=== PATIENT | male | born 1960 | race African-American/Black ===

== ENCOUNTER 2021-10-01 21:29 | Emergency (ER) | payer BC, OTHER ==
--- OUTSIDE RECORDS SUMMARY | 2021-10-01 21:33 | XMS REPORT | Continuity of Care Document ---
:1960 Author Organization [facility] t Address [address] [place] [address] Care Team Providers Name Role Phone PCP, DOES NOT HAVE A Primary Care Physician Unavailable MARIE Attending Clinician Unavailable Carly Attending Clinician Unavailable COLEEN Attending Clinician Unavailable Constantine Romo DO Attending Clinician [place] CABALLERO, A Attending Clinician Reginald GUTHRIE Attending Clinician Unavailable MARIE Admitting Clinician Unavailable Carly Admitting Clinician Unavailable [place] CABALLERO, A Admitting Clinician Reginald GUTHRIE Admitting Clinician Unavailable Payers Payer Name Policy Type Policy Number Effective Date Expiration Date S leesa [address] QUEZADA [id number] FROM [place] [employer] PL[employer] ([facility]) Problems Condition Condition Condition Status Onset Resolution Last Treating Co mments Source Name Details Category Date Date Treatment Clinician Date Hyperglyce Hyperglyce Disease Active 2020-0 U nivers bear due to bear due to 2-10 it y of type 2 type 2 00:00: [place] diabetes diabetes 00 Medica l mellitus mellitus Branch Gastroesop Gastroesop Diagnosis Active [facility] - reflux reflux Memoria disease, disease, l esophagiti esophagiti Ou tpati s presence s presence en t not not Clinics specified specified Diabetes Diabetes Problem Active [facility] mellitus mellitus [facility] - type 2, type 2, Memoria uncontroll uncontroll l ed, ed, Outpati without without ent complicati complicati Cl inics ons ons Pain of Pain of Problem Active [facility] upper upper [facility] - abdomen abdomen Memoria l Outpati ent Clinics Elevated Elevated Diagnosis Active [facility] PSA, less PSA, less Luke s - than 10 than 10 Memoria ng/ml ng/ml l Outpati ent Clinics Stress Stress Problem Active [facility] Erectile Erectile Diagnosis Active [facility] dysfunctio dysfunctio Sindy kes - n, n, Memoria unspecifie unspecifie l d erectile d erectile Ou tpati dysfunctio dysfunctio en t n type n type Clinics Depression Depression Diagnosis Active [facility] (emotion[facility] (emotion[facility] - Memoria l Outpati ent Clinics History of History of Problem Active [facility] prostate prostate [facility] - cancer cancer [facility] l Outpati ent Clinics Hyperlipid Hyperlipid Diagnosis Active [facility] HTN HTN Diagnosis Active [facility] (hypertens (hypertens Sindy kes - ion) ion) Memoria l Outpati ent Clinics Uncontroll Uncontroll Diagnosis Active [facility] ed type 2 ed type 2 Luke s - diabetes diabetes Memori a mellitus mellitus l with with Outpati hypoglycem hypoglycem en t ia, ia, Clinics unspecifie unspecifie d d hypoglycem hypoglycem ia coma ia coma status status Allergies, Adverse Reactions, Alerts Allergy Allergy Status Severity Reaction(s) Onset Inactive Treating Comm ents Source Name Type Date Date Clinician NO KNOWN Drug Active Univers ALLERGIE Class ity of S [facility] Social History Social Habit Start Date Stop Date Quantity Comments Source Sex Assigned At [facility] Medical Branch Alcohol intake 2019-07-24 2019-07-24 [facility] 00:00:00 00:00:00 [facility] Branch Smoking Status Start Date Stop Date Source Former smoker 2019-07-24 00:00:00 2019-07-24 00:00:00 [facility] Branch Medications Ordered Filled Start Stop Current Ordering Indication Dosage Frequency Signature Comments Components Source Medication Medication Date Date Medication? Clinician (SIG) Name Name atorvastati Yes 20mg 20 mg, Univ ers n (LIPITOR) 2-12 Oral, QHS, it y of tablet 20 03:00: [place] mg 00 on Wed [facility] 07/25/19 at Branch 2100, Until Discontinu ed, Routine esomeprazol 2019-0 Yes 20mg Take 20 mg Univers e (NEXIUM) 11 by mouth ity o f 20 mg 21:19: daily [place] capsule 13 before a Medical meal. Branch gabapentin 2020- No 600mg Take 600 U nivers 600 mg 07-25 mg by ity of tablet 18:21: 00:00 mouth at [place] 06 :00 bedtime. Medical Branch insulin NPH 2019-0 Yes .15U/kg 7 Units Univers (HUMULIN N) 07-25d (rounded ity of injection 7 15:00: from [place] Units 00 6.8025 Medical Units = Branch 0.15 Units/kg/d ay ?90.7 kg), Subcutaneo us, QAM+HS, First dose on Wed07/25/19 at 0900, Until Discontinu ed, Routine Sliding 2019-0 Yes [facility] ers Scale 2-11 us, TID ity of Insulin - 03:00: MEALS+HS, Vadim as Aspart 00 First dose Medical (NOVOLOG) + on Wed [place] [facility] 07/24/19 at Testing 2100, Until Discontinu ed, Routine gabapentin 2019-0 Yes 600mg 600 mg, Uni vers (NEURONTIN) -11 Oral, QHS, it y of tablet 600 03:00: [place] mg 00 on [facility] 07/24/19 at Branch 2100, Until Discontinu ed, Routine insulin NPH 2020- No .1U/kg/ 5 Units Univers (HUMULIN N) 07-25 d (rounded ity of injection 5 03:00: 13:22 from 4.535 [place] Units 00 :58 Units = Medical 0.1 Branch Units/kg/d ay ?90.7 kg), Subcutaneo us, QAM+HS, First dose on [facility] 07/24/19 at 2100, Until Discontinu ed, Routine magnesium 2019-0 2020- No 800mg 800 mg, Uni vers oxide 07-25 Oral, ity of (MAG-OX 02:15: 03:23 ONCE, 1 [place] 400) tablet 00 :00 dose, [facility] Med ical 800 mg 07/24/19 at Branch 2015, Routine enoxaparin 2020-0 Yes 40mg 40 mg, Unive rs (LOVENOX) 2-11 Subcutaneo ity of injection 00:30: us, Q24H, [place] as 40 mg 00 First dose Medical on [facility] Branch 07/24/19 at 1830, Until Discontinu ed, Routine amLODIPine 2020-0 Yes 5mg 5 mg, Univer s (NORVASC) 2-11 Oral, QPM, ity of tablet 5 mg 00:15: First dose [place] 00 on [facility] Medical 07/24/19 at Branch 1815, Until Discontinu ed, Routine pantoprazol 2020-0 Yes 40mg 40 mg, Univ ers e 2-11 Oral, QPM, ity of (PROTONIX) 00:15: First dose [place] EC tablet 00 on [facility] 40 mg 07/24/19 at Branch 1815, Until Discontinu ed, Routine amLODIPine 2020-0 Yes [id number] 5mg Take 1 U nivers 5 mg tablet 2-11 tablet by ity of 00:00: mouth [place] 00 daily. Medical Branch atorvastati 2020-0 Yes [id number] 40mg Take 1 Univers n 40 mg 2-11 tablet by ity of tablet 00:00: mouth at [place] 00 bedtime. Medical Branch metFORMIN 2020-0 Yes [id number] 500mg Take 1 U nivers 500 mg 2-11 tablet by ity of tablet 00:00: mouth 2 [place] 00 (two) Medical times Branch daily with meals. After one week, take two tablets twice daily with meals. gabapentin 2020-0 Yes [id number] 300mg Take 1 Univers ER 300 mg 2-11 tablet by ity o f tablet, 00:00: mouth 3 [place] extended 00 (three) Medical release 24 times Branch hr daily. glipiZIDE 2020-0 Yes [id number] 10mg Take 1 Un dhara 10 mg 2-11 tablet by ity of tablet 00:00: mouth 2 [place] 00 (two) Medical times Branch daily before breakfast and dinner. magnesium 2020-0 2020- No 296mL 296 mL, Uni vers citrate -03 15-10 Oral, ity of solution 23:30: 22:43 ONCE, 1 [place] 296 mL 00 :00 dose, [facility] Medical 07/24/19 at Branch 1730, SILVERIO acetaminoph 2020-0 Yes 650mg 650 mg, Un dhara en 2-10 Oral, ity of (TYLENOL) 23:26: Q6HPRN, [place] tablet 650 22 Starting Medic al mg Mon [place] 07/24/19 at 1726, Until Discontinu ed, Routine, Pain (scale 1-3) NaCl 0.9% 2020-0 2020- No 1000mL at 999 Uni vers (NS) bolus 2-10 02-10 mL/hr, ity of infusion 21:30: 21:49 1,000 mL, [place] as 1,000 mL 00 :00 IV Medical Infusion, Branch ONCE, 1 dose, 07/24/19 at 1530, STAT metFORMIN 2019-0 2020- No 1000mg 1,000 mg, Univers (GLUCOPHAGE 210 Oral, ity of ) tablet 19:45: 18:49 ONCE, 1 [place] 1,000 mg 00 :00 dose, Mon Medica l 07/24/19 at Branch 1345, SILVERIO insulin 2019-0 2020- No 3U 3 Units, Unive rs regular 2- 02-10 IV Push, ity of human 19:45: 18:50 ONCE, 1 [place] (HUMULIN R) 00 :00 dose, [facility] Med ical injection 3 07/24/19 at Br anch Units 1345, Routine NaCl 0.9% 2019-0 2020- No 1000mL at 999 Uni vers (NS) bolus 2-10 02-10 mL/hr, ity of infusion 19:45: 20:56 1,000 mL, Vadim as 1,000 mL 00 :00 IV Medical Infusion, [place] ONCE, 1 dose, [facility] 07/24/19 at 1345, STAT iohexol 2019-0 2020- No 120mL 120 mL, Unive rs (OMNIPAQUE 07-2410 Intravenou it y of 350 19:30: 19:30 s, ONCE, 1 [place] BULK-150 00 :00 dose, Mon Medica l mL) 07/24/19 at Branch injection 1330, 120 mL Routine Sucralfate Sucralfate 2017-06 2019- No [place] [address] [facility] 07-26 on an [facility] - 00:00: 00:00 empty Memoria 00 :00 stomach l Outpati ent Clinics Metformin Metformin 2018-0 Yes [place] [address] [facility] HCl HCl 6-04 with a [facility] - 00:00: meal Memoria 00 l Outpati ent Clinics Lisinopril Lisinopril 2017-0 Yes [place] [address] [facility] 4-12 [facility] - 00:00: Memoria 00 l Outpati ent Clinics Neurontin Neurontin Yes [place] [address] [facility]pat[facility] Clinics Simvastatin Simvastatin Yes [place] [address] [facility] in the [facility] - evening Memoria l Outpati ent Clinics Glimepiride Glimepiride Yes [place] [address] [facility] with [facility] - breakfast Memoria or the l first main Outpati meal of ent the day Clinics Aspir-81 Aspir-81 Yes Na [place] [address] [facility] Lisinopril Lisinopril Yes [place] [address] [facility] Cialis Cialis 2019- No [place] [address] 04-17 [facility] - 00:00 Memoria :[facility] Vital Signs Vital Name Observation Time Observation Value Comments Source Systolic blood 2019-07-25 17:49:00 126 mm[Hg] [facility] Districter sity pressure [facility] Diastolic blood 2019-07-25 17:49:00 92 mm[Hg] [facility] rate 2019-07-25 17:49:00 75 /min [facility] Body temperature 2019-07-25 17:49:00 36.33 Marisa [facility] Respiratory rate 2019-07-25 17:49:00 16 /min [facility] Oxygen saturation in 2019-07-25 17:49:00 99 /min [facility] Arterial blood by [facility] Pulse oximetry Branch Body height 2019-07-25 02:00:00 190.5 cm [facility] Body weight 2019-07-25 02:00:00 89.994 kg [facility] BMI 2019-07-25 02:00:00 24.80 kg/m2 [facility] Procedures Procedure Date / Time Performing Clinician Source Performed POCT GLUCOSE 2019-07-25 18:36:00 José Luis Guthrie [facility] (AUTOMATED) Medical [place] POCT GLUCOSE 2019-07-25 14:26:00 José Luis Guthrie [facility] (AUTOMATED) Medical Branch MAGNESIUM 2019-07-25 10:39:00 Damien Ornelas [facility] VITAMIN B12, LEVEL 2019-07-25 10:39:00 José Luis Guthrie [facility] BASIC METABOLIC PANEL 2019-07-25 10:39:00 Damien Ornelas [facility] (NA, K, CL, CO2, Medical Branch GLUCOSE, BUN, CREATININE, CA) LIPID PANEL 2019-07-25 10:39:00 Damien Ornelas [facility] ([id number])(TOTAL Medical Branch CHOLESTEROL, TRIGLYCERIDES, HDL) POCT GLUCOSE 2019-07-25 03:07:00 José Luis Guthrie [facility] (AUTOMATED) Medical Branch PHOSPHORUS 2019-07-24 23:05:00 Aurelio Cooney [facility] MAGNESIUM 2019-07-24 23:05:00 Aurelio Cooney [facility] FREE T4 2019-07-24 23:05:00 Damien Ornelas [facility] THYROID STIMULATING 2019-07-24 23:05:00 [facility] BASIC METABOLIC PANEL 2019-07-24 23:05:00 Damien Ornelas [facility] (NA, K, CL, CO2, Medical Branch GLUCOSE, BUN, CREATININE, CA) POCT GLUCOSE 2019-07-24 21:50:00 Constantine Romo [facility] (AUTOMATED) [facility] ACUTE CARE VENOUS BLOOD 2019-07-24 21:49:00 Gustavo Welch iversesteban [facility] GAS [facility] MICROALBUMIN URINE 2019-07-24 21:25:00 Damien Ornelas [facility] URINALYSIS 2019-07-24 21:25:00 Constantine Romo [facility] POCT GLUCOSE 2019-07-24 20:07:00 Constantine Romo [facility] (AUTOMATED) [facility] LACTIC ACID WHOLE BLOOD 2019-07-24 19:50:00 Gustavo Welch [facility] ACUTE CARE VENOUS BLOOD 2019-07-24 19:20:00 Constantine Romo, [facility] GAS [facility] CT ABDOMEN PELVIS W 2019-07-24 19:19:48 Constantine Romo, [facility] CONTRAST [facility] PHOSPHORUS 2019-07-24 18:49:00 Constantine Romo, [facility] BETA HYDROXY-BUTYRATE 2019-07-24 18:49:00 Constantine Romo, [facility] TROPONIN I 2019-07-24 18:49:00 Constantine Romo, [facility] LIPASE 2019-07-24 17:49:00 Anyi Shah [facility] OSMOLALITY SERUM 2019-07-24 17:49:00 Constantine Romo, [facility] COMP. METABOLIC PANEL 2019-07-24 17:49:[address] [facility] ([id number]) [facility] CBC WITH DIFFERENTIAL 2019-07-24 17:49:00 Anyi Shah Un [facility] GLYCOSYLATED HEMOGLOBIN 2019-07-24 17:49:00 Damien Ornelas [facility] (A1C) [facility] Encounters Start End Encounter Admission Attending Care Care Encounter Source Date/Time Date/Time Type Type Clinicians Facility Department ID 2021-06-17 2021-06-17 Outpatient FERGUSON_JO [facility] [id number] [place] 11:50:00 11:50:00 [facility] 2021-06-09 2021-06-09 Outpatient FERGUSON_JO FLHOP [facility] [address] [place] 08:54:00 08:54:[place] [id number] [facility] 2021-04-28 2021-04-28 Outpatient FERGUSON_JO MEHOP [facility] [id number] [place] 02:36:00 02:36[place] [id number] [facility] 2021-04-24 2021-04-24 Outpatient FERGUSON_JO [facility] [id number] [place] 02:43:00 02:43:00 [place] [id number] da [facility] 2021-02-18 2021-02-18 Outpatient Carly [facility]G [facility] [id number] [place] 11:19:00 11:19:00 [id number] Medical Group 2019-12-14 2019-12-14 Emergency COLEEN, [facility] [id number] [place] 00:00:00 00:00:[address] ARIELLE [address] 2019-07-24 2019-07-25 Emergency Constantine SanzpaigeNikita [id number] Univers 10:20:15 15:19:00 José Luis Guthrie [place] [id number] ity [facility] [id number] Vadim as [id number] [address] 2019-07-24 2019-07-25 Outpatient X [facility] [id number] Univers 10:20:15 15:19:00 [facility] 2018-06-30 2018-06-30 [facility] [id number] 11:30:00 11:30:00 [facility] ent [facility] 2018-05-25 2018-05-25 [facility] [id number] 13:00:00 13:00:00 [facility] Results Test Description Test Time Test Comments Results Result Comments Source MICROALBUMIN URINE 2019-07-25 21:15:00 Test Item Value Reference Range Interpretation Comme nts CREAT U (test code = 37.7 mg/dL 8311004103) MICROALB U (test code 2 ug/mL 0-45 = 98229-8) MICROAL/CR (test code See_Comment [Auto mated message] = 9318-7) The system [facility] [facility] generated this result transmitted ref erence range: 0 - 30 m g/g of creatinine. The reference range was not used to int erpret this result as normal/abnormal . JOSÉ (test code = JOSÉ) Normal: <30 mg/g creatinineMicroalbuminuria: 30 - 299 mg/g creatinineClinical albuminuria: > 300 mg/g creatinine [facility] GLUCOSE (AUTOMATED)2019-07-25 18:57:00 Test Item Value Reference Range Interpretation Comments POCT GLU (test code = 4432994672) 262 mg/dL 70-110 H Lab Interpretation (test code = Abnormal 92025-4) [facility], [id number] 16:23:00 Test Item Value Reference Range Interpretation Comments VIT B12 (test code = 381 pg/mL 240-930 6908410486) JOSÉ (test code = JOSÉ) Biotin has been reported to cause a positive bias, interpret results relative to patient's use of biotin. Lab Interpretation (test Normal code = 15474-0) [facility] GLUCOSE (AUTOMATED)2019-07-25 14:27:00 Test Item Value Reference Range Interpretation Comments POCT GLU (test code = 5121029585) 250 mg/dL 70-110 H Lab Interpretation (test code = Abnormal 38712-1) [facility] (NA, K, CL, CO2, GLUCOSE, BUN, CREATININE, CA)2019-07-25 12:13:00 Test Item Value Reference Range Interpretation Comments NA (test code = 135 mmol/L 135-145 9096414997) K (test code = 4.0 mmol/L 3.5-5 6630758661) CL (test code = 103 mmol/L 98-108 2165409865) CO2 TOTAL (test code = 21 mmol/L 23-31 L 0174687304) AGAP (test code = 2-16 0903923915) BUN (test code = 12 mg/dL 7-23 1556523736) GLUCOSE (test code = 240 mg/dL 70-110 H 1086756908) CREATININE (test code = 0.84 mg/dL 0.6-1.25 1652766467) CALCIUM (test code = 8.5 mg/dL 8.6-10.6 L 6429731470) eGFR Calculation mL/min/1.73m2 (Non-) (test code = 9535664834) eGFR Calculation mL/min/1.73m2 () (test code = 0793469296) JOSÉ (test code = JOSÉ) Association of Glomerular Filtration Rate (GFR) and Staging of Kidney Disease* + --+ --+ ------+| GFR (mL/min/1.73 m2) ?| With Kidney Damage ?| ?Without Kidney Damage+ --------+ --------+ +| ?>90 ?| ?Stage one ?| ? Normal ?+ ---+ ---+ -------+| ?60-89 ?| ?Stage two ?| ? Decreased GFR ? + --+ --+ ------+| ?30-59 ?| ?Stage three ?| ? Stage three ? + --+ --+ ------+| ?15-29 ?| ?Stage four ? | ? Stage four ?+ ---+ ---+ -------+| ?<15 (or dialysis) ? ?| ?Stage five ? | ? Stage five ?+ ---+ ---+ -------+ *Each stage assumes the associated GFR level has been in effect for at least three months. ?Stages 1 to 5, with or without kidney disease, indicate chronic kidney disease. Notes: Determination of stages one and two (with eGFR >59mL/min/1.73 m2) requires estimation of kidney damage for at least three months as defined by structural or functional abnormalities of the kidney, manifested by either:Pathological abnormalities or Markers of kidney damage (including abnormalities in the composition of the blood or urine or abnormalities in imaging tests). Lab Interpretation Abnormal (test code = 54336-9) [facility] Hospital[facility]esium [id number] 12:13:00 Test Item Value Reference Range Interpretation Comments MAGNESIUM (test code = 5387844379) 1.6 mg/dL 1.7-2.4 L Lab Interpretation (test code = Abnormal 35985-2) [facility] HospitalLIPID PANEL (41949)(TOTAL CHOLESTEROL, TRIGLYCERIDES, HDL)2019-07-25 12:13:00 Test Item Value Reference Range Interpretation Comments CHOL (test code = 215 mg/dL 120-200 H 5762779733) HDL (test code = 26 mg/dL >40 L 1587511501) HDLC RATIO (test code = See_Comment H [Au tomated message] 8220358628) The system [facility] generated this result transmit kristian reference range : <=5.0. The refe rence range was not u sed to interpret th is result as normal/abnormal . TRIG (test code = 293 mg/dL 30-170 H 2840131694) LDL CHOL (test code = 130 mg/dL See_Comment [Auto mated message] 13311-5) The system [facility] generated this result transmit kristian reference range : <=160. The refe rence range was not u sed to interpret th is result as normal/abnormal . VLDL (test code = 59 mg/dL 5-60 7289148866) Lab Interpretation (test Abnormal code = 76156-0) [facility] HospitalPhosphorus [id number] 06:56:00 Test Item Value Reference Range Interpretation Comments PHOSPHORUS (test code = 4345955201) 3.5 mg/dL 2.5-5 Lab Interpretation (test code = Normal 80459-5) [facility] (AUT[facility])2019-07-25 03:09:00 Test Item Value Reference Range Interpretation Comments POCT GLU (test code = 6070108450) 282 mg/dL 70-110 H Lab Interpretation (test code = Abnormal 37413-7) [facility] HospitalTHYROID STIMULATING [id number] 01:13:00 Test Item Value Reference Range Interpretation Comments TSH (test code = See_Comment [Automated message] 2609701838) The system [facility] generated this result transmitted ref erence range: 0.45 - 4 .70 mIU/L. The refe rence range was not u sed to interpret this result as normal/abnor mal. Lab Interpretation (test Normal code = 73759-8) [facility] HospitalGLYCOSYLATED HEMOGLOBIN (A1C)2019-07-25 01:11:00 Test Item Value Reference Range Interpretation Comments HGB A1C (test code = 4548-4) >14.0 4-6 H Lab Interpretation (test code = Abnormal 84054-9) [facility] [id number] 01:00:00 Test Item Value Reference Range Interpretation Comments FREE T4 (test code = See_Comment [Autom ated message] 7944323731) The system [facility] generated this result transmitted ref erence range: 0.78 - 2 .20 ng/dL:. The ref erence range was not u sed to interpret this result as normal/abnor mal. Lab Interpretation (test Normal code = 18707-4) [facility] HospitalMAG[facility]IUM2020-02-11 00:34:00 Test Item Value Reference Range Interpretation Comments MAGNESIUM (test code = 2896996378) 1.6 mg/dL 1.7-2.4 L Lab Interpretation (test code = Abnormal 81292-6) [facility]PHOSPHORUS2020-02-11 00:34:00 Test Item Value Reference Range Interpretation Comments PHOSPHORUS (test code = 5371022325) 3.6 mg/dL 2.5-5 Lab Interpretation (test code = Normal 05359-1) [facility] METABOLIC PANEL (NA, K, CL, CO2, GLUCOSE, BUN, CREATININE, CA)2019-07-24 23:36:00 Test Item Value Reference Range Interpretation Comments NA (test code = 137 mmol/L 135-145 0018810293) K (test code = 4.2 mmol/L 3.5-5 6438522094) CL (test code = 102 mmol/L 98-108 0183589863) CO2 TOTAL (test code = 25 mmol/L 23-31 5295459417) AGAP (test code = 2-16 7647944690) BUN (test code = 15 mg/dL 7-23 1104311273) GLUCOSE (test code = 213 mg/dL 70-110 H 7685475030) CREATININE (test code = 0.78 mg/dL 0.6-1.25 6857144039) CALCIUM (test code = 9.0 mg/dL 8.6-10.6 0484068039) eGFR Calculation mL/min/1.73m2 (Non-) (test code = 2519846721) eGFR Calculation mL/min/1.73m2 () (test code = 1072290008) JOSÉ (test code = JOSÉ) Association of Glomerular Filtration Rate (GFR) and Staging of Kidney Disease* + --+ --+ ------+| GFR (mL/min/1.73 m2) ?| With Kidney Damage ?| ?Without Kidney Damage+ --------+ --------+ +| ?>90 ?| ?Stage one ?| ? Normal ?+ ---+ ---+ -------+| ?60-89 ?| ?Stage two ?| ? Decreased GFR ? + --+ --+ ------+| ?30-59 ?| ?Stage three ?| ? Stage three ? + --+ --+ ------+| ?15-29 ?| ?Stage four ? | ? Stage four ?+ ---+ ---+ -------+| ?<15 (or dialysis) ? ?| ?Stage five ? | ? Stage five ?+ ---+ ---+ -------+ *Each stage assumes the associated GFR level has been in effect for at least three months. ?Stages 1 to 5, with or without kidney disease, indicate chronic kidney disease. Notes: Determination of stages one and two (with eGFR >59mL/min/1.73 m2) requires estimation of kidney damage for at least three months as defined by structural or functional abnormalities of the kidney, manifested by either:Pathological abnormalities or Markers of kidney damage (including abnormalities in the composition of the blood or urine or abnormalities in imaging tests). 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 Hepatomegaly and hepatic steatosis. Small hiatal hernia. Findings were relayed to Dr. Fitch at time of dictation. IIvan MD., have reviewed this study and agree with theabove report.CT ABDOMEN AND PELVIS WITH CONTRAST HISTORY: Abd pain, acute, generalized Abd pain COMPARISON: None. TECHNIQUE: Contiguous axial imaging from the level of the lung basesthrough the proximal thighs was performed after the administration of 120cc of intravenous Omnipaque contrast. Coronal and sagittal reconstructionswere obtained. FINDINGS: LOWER THORAX: The lungs bases are clear. LIVER: Enlarged liver measuring up to 19 cm in craniocaudal dimension withdiffuse steatosis. No focal hepatic lesions identified. GALLBLADDER: No radiopaque cholelithiasis. No gallbladder wall thickening.No biliary ductal dilatation. SPLEEN: No splenomegaly. PANCREAS: No ductal dilation or masses. ADRENAL GLANDS: No adrenal nodules. KIDNEYS: 2.5 cm cyst in the left lower renal pole. Subcentimeter corticalhypodensities in the right kidney are too small to characterize, but likelysmall cysts. No obstructive calculi or hydronephrosis. PERITONEUM AND RETROPERITONEUM: No free air or fluid. Tiny fat-containingumbilical hernia without complication. LYMPH NODES: No lymphadenopathy. GI TRACT: No dilation or wall thickening. Normal appendix. Mild to moderatecolonic burden. Small hiatal hernia with mild distal circumferentialesophageal thickening. PELVIS: Urinary bladder is normal for the degree of distention. VESSELS: Diminutive celiac trunk without appreciable poststenoticdilatation. 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 Scattered aortoiliac atherosclerotic plaque in theinfrarenal abdominal aorta and iliac vessels. Mild stenosis of theinfrarenal abdominal aorta related to soft plaque (302:54). BONES AND SOFT TISSUES: No aggressive or suspicious osseous lesions. [facility], Radiant Results Inft User - 07/24/2019 5:08PM CSTCT ABDOMEN AND PELVIS WITH CONTRASTHISTORY: Abd pain, acute, generalized Abd painCOMPARISON: None.TECHNIQUE: Contiguous axial imaging from the level of the lung basesthrough the proximal thighs was performed after the administration of 120cc of intravenous Omnipaque contrast. Coronal and sagittal reconstructionswere obtained.FINDINGS:LOWER THORAX: The lungs bases are clear.LIVER: Enlarged livermeasuring up to 19 cm in craniocaudal dimension withdiffuse steatosis. No focal hepatic lesions identified.GALLBLADDER: No radiopaque cholelithiasis. No gallbladder wall thickening.No biliary ductal dil atation.SPLEEN: No splenomegaly.PANCREAS: No ductal dilation or masses.ADRENAL GLANDS: No adrenal nodules.KIDNEYS: 2.5 cm cyst in the left lower renal pole. Subcentimeter corticalhypodensities in the right kidney are too small to characterize, but likelysmall cysts. No obstructive calculi or hydronephr osis.PERITONEUM AND RETROPERITONEUM: No free air or fluid. Tiny fat- containingumbilical hernia without complication.LYMPH NODES: No lymphadenopathy.GI TRACT: No dilation or wall thickening. Normal appendix. Mild to moderatecolonic burden. Small hiatal hernia with mild distal circumferentialesophageal thickening.PELVIS: Urinary bladder is normal for the degree of distention.VESSELS: Diminutive celiac trunk without appreciable poststenoticdilatation. 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 Scattered aortoiliac atherosclerotic plaque in theinfrarenal abdominal aorta and iliac vessels. 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 Fitch at time of dictation.I, Ivan Thomas MD., have reviewed this study and agree with theabove report.[facility] HospitalBETA [id number] 22:44:00 Test Item Value Reference Range Interpretation Comments BOH (test code = 0.1 mmol/L 2194882415) JOSÉ (test code = Normal Ranges: ? ? JOSÉ) Nonfasting ? Less than 0.1 mmol/L ? ? Overnight Fast ? ? ? Less than 0.4 mmol/L ? ? Fasting (1-2 weeks) ?6-8 mmol/L Test developed and characteristics determined by [facility] Laboratory Services. [facility]PO[facility] (AUTOMATED)2019-07-24 22:07:00 Test Item Value Reference Range Interpretation Comments POCT GLU (test code = 6229501816) 252 mg/dL 70-110 H Lab Interpretation (test code = Abnormal 91622-9) [facility]LO[facility] [id number] 21:58:00 Test Item Value Reference Range Interpretation Comments PH (test code = 7.32-7.42 L 7899853620) PCO2 YADI (test code = See_Comment H [Auto mated message] 6081010562) The system [employer] generated this result transmitted ref erence range: 41 - 51 mmHg. The reference r brea was not used to interpret this result as normal/abnor mal. PO2 YADI (test code = <16 See_Comment L [Autom ated message] 6179834471) The system [employer] [facility] generated this result transmitted ref erence range: 25 - 40 mmHg. The reference r brea was not used to interpret this result as normal/abnor mal. HCO3 YADI (test code = See_Comment [Auto mated message] 8740321666) The system [employer] [facility] generated this result transmitted ref erence range: 24 - 28 mEq/L. The reference r brea was not used to interpret this result as normal/abnor mal. AC VBE(BEAKER) (test mEq/L code = 6309550919) Lab Interpretation (test Abnormal code = 36557-0) [facility]UR[facility]IS2020-02-10 21:39:00 Test Item Value Reference Range Interpretation Comments APPEARANCE (test code = Clear Clear 4857962979) COLOR (test code = Straw Yellow A 9700258120) PH (test code = 4.8-8.0 0718246737) SP GRAVITY (test code = 1.003-1.030 H 4653608846) GLU U QUAL (test code = 500 mg/dL Normal A 4469208314) BLOOD (test code = 1+ Negative A 0741999597) KETONES (test code = Negative Negative 2621309586) PROTEIN (test code = Negative Negative 2887-8) UROBILIN (test code = Normal Normal 5144368044) BILIRUBIN (test code = Negative Negative 2818750472) NITRITE (test code = Negative Negative 9062676027) LEUK RENÉ (test code = Negative Negative 3809834828) RBC/HPF (test code = <1 See_Comment [Autom ated message] 3659767464) The system [employer] [facility] generated this result transmit kristian reference range : 0 - 3 HPF. The refe rence range was not u sed to interpret th is result as normal/abnormal . WBC/HPF (test code = <1 See_Comment [Autom ated message] 6451413337) The system [employer] [facility] generated this result transmit kristian reference range : 0 - 5 HPF. The refe rence range was not u sed to interpret th is result as normal/abnormal . BACTERIA (test code = Negative Negative 0682700283) SQ EPITH (test code = <1 See_Comment [Auto mated message] 1140734808) The system [employer] [facility] generated this result transmit kristian reference range : <=2 HPF. The refere nce range was not u sed to interpret th is result as normal/abnormal . Lab Interpretation (test Abnormal code = 12225-6) [facility]PO[facility]AUT[facility]ATED)2019-07-24 20:09:00 Test Item Value Reference Range Interpretation Comments POCT GLU (test code = 4094535396) 371 mg/dL 70-110 H Lab Interpretation (test code = Abnormal 45791-6) [facility] HospitalLawaic Acid Whole [id number] 19:59:00 Test Item Value Reference Range Interpretation Comments LACTIC ACID (test code = 1.72 mmol/L 0.5-2.2 3262099294) Lab Interpretation (test code = Normal 87996-0) [facility] [id number] 19:42:00 Test Item Value Reference Range Interpretation Comments PH (test code = 7.32-7.42 L 7371935066) PCO2 YADI (test code = See_Comment [Auto mated message] 7468571911) The system [facility] [facility] generated this result transmitted ref erence range: 41 - 51 mmHg. The reference r brea was not used to interpret this result as normal/abnor mal. PO2 YADI (test code = See_Comment L [Autom ated message] 1674876338) The system [employer] [facility] generated this result transmitted ref erence range: 25 - 40 mmHg. The reference r brea was not used to interpret this result as normal/abnor mal. HCO3 YADI (test code = See_Comment [Auto mated message] 9782350933) The system [employer] [facility] generated this result transmitted ref erence range: 24 - 28 mEq/L. The reference r brea was not used to interpret this result as normal/abnor mal. AC VBE(BEAKER) (test mEq/L code = 7424151461) Lab Interpretation (test Abnormal code = 58312-2) [facility] HospitalTROPONIN [id number] 19:26:00 Test Item Value Reference Range Interpretation Comments TROPONIN I (test 0.007 ng/mL See_Comment [Automated code = 6143401055) message] The system which generated this result transmitted reference range : <=0.034. The reference range was not used to interpret this result as normal/abnormal . JOSÉ (test code = Equal or Less than JOSÉ) 0.034 ng/ml---Normal ?Note: Cardiac troponin begins to rise 3-4 hours after the onset of ischemia. Repeat in 4-6 hours if the sample was drawn within 3-4 hours of the onset of the symptom and found normal. Between 0.035 and 0.120 ng/mL--- Borderline. Questionable myocardial injury or necrosis ? ?Note: Serial measurement may be necessary to confirm or exclude the diagnosis of myocardial injury or necrosis; Clinical correlation (symptoms, EKGs, imaging studies, and others) required; Repeat in 4-6 hours if clinically indicated. ? Equal or Higher than 0.121 ng/mL---Abnormal. Myocardial Injury or Necrosis Likely ? Biotin has been reported to cause a negative bias, interpret results relative to patient's use of biotin. ? Lab Interpretation Normal (test code = 30660-1) [facility] HospitalOSMOLALITY [id number] 19:25:00 Test Item Value Reference Range Interpretation Comments OSMOLALITY (test code = See_Comment H [Au tomated message] 1617406842) The system [employer] [facility] generated this result transmitted ref erence range: 278 - 30 5 mOsm/kg. The reference range was not used to int erpret this result as normal/abnormal . Lab Interpretation (test Abnormal code = 43225-5) [facility]. METABOLIC PANEL (62618)2019-07-24 18:24:00 Test Item Value Reference Range Interpretation Comments NA (test code = 132 mmol/L 135-145 L 6153965162) K (test code = 4.6 mmol/L 3.5-5 2565678352) CL (test code = 95 mmol/L 98-108 L 4177256017) CO2 TOTAL (test code = 23 mmol/L 23-31 0385835068) AGAP (test code = 2-16 3813273506) BUN (test code = 15 mg/dL 7-23 4701214655) GLUCOSE (test code = 553 mg/dL 70-110 HH 7338167121) CREATININE (test code = 0.91 mg/dL 0.6-1.25 0397816781) TOTAL BILI (test code = 0.6 mg/dL 0.1-1.2 6539382729) CALCIUM (test code = 9.6 mg/dL 8.6-10.6 9024528863) T PROTEIN (test code = 7.7 g/dL 6.3-8.2 5360427042) ALBUMIN (test code = 4.5 g/dL 3.5-5 2220822829) ALK PHOS (test code = 140 U/L 34-122 H 0787454591) ALTv (test code = 21 U/L 5-50 1742-6) AST(SGOT) (test code = 24 U/L 13-40 9438247853) eGFR Calculation mL/min/1.73m2 (Non-) (test code = 4146740082) eGFR Calculation mL/min/1.73m2 () (test code = 7946542667) JOSÉ (test code = JOSÉ) Association of Glomerular Filtration Rate (GFR) and Staging of Kidney Disease* + --+ --+ ------+| GFR (mL/min/1.73 m2) ?| With Kidney Damage ?| ?Without Kidney Damage+ --------+ --------+ +| ?>90 ?| ?Stage one ?| ? Normal ?+ ---+ ---+ -------+| ?60-89 ?| ?Stage two ?| ? Decreased GFR ? + --+ --+ ------+| ?30-59 ?| ?Stage three ?| ? Stage three ? + --+ --+ ------+| ?15-29 ?| ?Stage four ? | ? Stage four ?+ ---+ ---+ -------+| ?<15 (or dialysis) ? ?| ?Stage five ? | ? Stage five ?+ ---+ ---+ -------+ *Each stage assumes the associated GFR level has been in effect for at least three months. ?Stages 1 to 5, with or without kidney disease, indicate chronic kidney disease. Notes: Determination of stages one and two (with eGFR >59mL/min/1.73 m2) requires estimation of kidney damage for at least three months as defined by structural or functional abnormalities of the kidney, manifested by either:Pathological abnormalities or Markers of kidney damage (including abnormalities in the composition of the blood or urine or abnormalities in imaging tests). Lab Interpretation Abnormal (test code = 85685-1) [facility] HospitalLIPASE2020-02-[facility] 18:20:00 Test Item Value Reference Range Interpretation Comments LIPASE (test code = 4199993633) 100 U/L 0-220 Lab Interpretation (test code = Normal 85768-0) [facility] HospitalCB WITH [id number] 18:15:00 Test Item Value Reference Range Interpretation Comments WBC (test code = See_Comment [Automated 1890-2) message] The sy stem which generated this result transmitted reference range : 4.20 - 10.70 10*3/?L. The reference range was not used to interpret this result as normal/abnormal . RBC (test code = See_Comment H [Automated 789-8) message] The sy stem which generated this result transmitted reference range : 4.26 - 5.52 10*6/?L. The reference range was not used to interpret this result as normal/abnormal . HGB (test code = 16.0 g/dL 12.2-16.4 718-7) HCT (test code = 46.3 % 38.4-49.3 4544-3) MCV (test code = 75.0 fL 81.7-95.6 L 787-2) MCH (test code = 25.9 pg 26.1-32.7 L 785-6) MCHC (test code = 34.6 g/dL 31.2-35 786-4) RDW-SD (test code = 34.5 fL 38.5-51.6 L 39160-2) RDW-CV (test code = 13.2 % 12.1-15.4 788-0) PLT (test code = See_Comment [Automated 777-3) message] The sy stem which generated this result transmitted reference range : 150 - 328 10*3/ ?L. The reference r brea was not used to interpret this result as normal/abnormal . MPV (test code = 10.5 fL 9.8-13 58239-3) NRBC/100 WBC (test See_Comment [Automat ed code = 1669360951) message] The system which generated this result transmitted reference range : 0.0 - 10.0 /100 WBCs. The refer ence range was not u sed to interpret th is result as normal/abnormal . NRBC x10^3 (test code <0.01 See_Comment [Auto mated = 3476664517) message] The s ystem which generated this result transmitted reference range : 10*3/?L. The reference range was not used to interpret this result as normal/abnormal . GRAN MAT (NEUT) % 61.0 % (test code = 770-8) IMM GRAN % (test code 0.30 % = 5889192665) LYMPH % (test code = 30.4 % 736-9) MONO % (test code = 6.6 % 5905-5) EOS % (test code = 1.1 % 713-8) BASO % (test code = 0.6 % 706-2) GRAN MAT x10^3(ANC) 4.79 10*3/uL 1.99-6.95 (test code = 0350430919) IMM GRAN x10^3 (test <0.03 0-0.06 code = 9318869435) LYMPH x10^3 (test code 2.39 10*3/uL 1.09-3.23 = 731-0) MONO x10^3 (test code 0.52 10*3/uL 0.36-1.02 = 742-7) EOS x10^3 (test code = 0.09 10*3/uL 0.06-0.53 711-2) BASO x10^3 (test code 0.05 10*3/uL 0.01-0.09 = 704-7) Lab Interpretation Abnormal (test code = 71052-2) [facility]"
[2021-10-01] MEDS ORDERED: ONDANSETRON 4 MG/2 ML VIAL ONE (22:02)
[2021-10-01] MEDS ORDERED: FAMOTIDINE 20 MG/2 ML VIAL IV ONE (22:02)
[2021-10-01] MEDS ORDERED: NA CHLORIDE 0.9% 1,000 ML ONE (22:02)
[2021-10-01 22:37] LABS: Absolute Lymphocytes (CBC) 2.9 K/uL (0.7-4.9); Hematocrit 45.2 % (39.6-49.0); Lymphocytes % 25.8 % (15.3-44.8); MPV 7.9 fL (7.6-11.3)
[2021-10-01 22:47] LABS: Albumin 3.9 g/dL (3.4-5.0); Bilirubin Total 0.5 mg/dL (0.2-1.0); Potassium 3.8 mmol/L (3.5-5.1); Protein, Total 8.2 g/dL (6.4-8.2)
[2021-10-01 23:13] LABS: SARS-COV-2 RT PCR NEGATIVE (NEGATIVE)
[2021-10-02 00:32] LABS: Urine Blood 1+ (Negative); Urine Glucose 1+ (Negative); Urine Protein 2+ (Negative); Urine Specific Gravity 1.025 (1.005-1.030)
[2021-10-02 01:05] LABS: Urine Bacteria <20 /HPF (NONE SEEN); Urine RBC <5 /HPF (NONE SEEN); Urine Urothelial Cells <5 /HPF (NONE SEEN)
[2021-10-02] MEDS ORDERED: ONDANSETRON 4 MG/2 ML VIAL ONE (01:27)
--- NOTE | 2021-10-02 01:34 | ER ---
Nurse's Notes [facility] Name: Louis Hutchinson Age: 61 yrs Sex: Male : 1960 Arrival Date: 10/01/2021 Time: 21:34 Bed 13 Private MD: Diagnosis: Abdominal pain, unspecified;Constipation, unspecified Presentation: 10/01 21:38 Chief complaint: Patient states: "I have been to [facility] er and to my doctor and they ab2 give me nausea medication but its not helping. I am severely constipated." Pt states he has not had a bowel movement in 2 weeks. pt c/o abdominal pain, n/v and back pain. Coronavirus screen: Vaccine status: Patient reports being unvaccinated. Client denies travel out of the [place] in the last 14 days. At this time, the client does not indicate any symptoms associated with coronavirus-19. Ebola Screen: Patient negative for fever greater than or equal to 101.5 degrees Fahrenheit, and additional compatible Ebola Virus Disease symptoms Patient denies exposure to infectious person. Patient denies travel to an Ebola-affected area in the 21 days before illness onset. No symptoms or risks identified at this time. Initial Sepsis Screen: Does the patient meet any 2 criteria? No. Patient's initial sepsis screen is negative. Does the patient have a suspected source of infection? No. Patient's initial sepsis screen is negative. Risk Assessment: Do you want to hurt yourself or someone else? Patient reports no desire to harm self or others. Onset of symptoms is unknown. 21:38 Method Of Arrival: Ambulatory ab2 21:38 Acuity: HAYLEE 3 ab2 Triage Assessment: 21:41 General: Appears in no apparent distress. uncomfortable, Behavior is cooperative. Pain: ab2 Complains of pain in back and abdomen. Neuro: Level of Consciousness is awake, alert, obeys commands, Oriented to person, place, time, situation, Appropriate for age. Cardiovascular: No deficits noted. Denies chest pain, shortness of breath, Patient's skin is warm and dry. Respiratory: Airway is patent Respiratory effort is even, unlabored, Respiratory pattern is regular, symmetrical. GI: Reports lower abdominal pain, upper abdominal pain, constipation, cramping, intolerance of fluids, intolerance of food, nausea, vomiting. Historical: - Allergies: 21:41 No Known Allergies; ab2 - PMHx: 21:41 Diabetes - NIDDM; Hyperlipidemia; Hypertension; ab2 - Immunization history:: Adult Immunizations up to date. - Social history:: Smoking status: Patient denies any tobacco usage or history of. - Family history:: not pertinent. - Hospitalizations: : No recent hospitalization is reported. Screenin:50 Abuse screen: Denies threats or abuse. Nutritional screening: No deficits noted. bb Tuberculosis screening: No symptoms or risk factors identified. Fall Risk None identified. Assessment: 21:50 General: Appears in no apparent distress. uncomfortable, slender, Behavior is calm, bb cooperative. Pain: Complains of pain in abdomen. Neuro: Level of Consciousness is awake, alert, obeys commands, Oriented to person, place, time, situation. Cardiovascular: Capillary refill < 3 seconds Patient's skin is warm and dry. Respiratory: Respiratory effort is even, unlabored, Respiratory pattern is regular. GI: Abdomen is round Bowel sounds present X 4 quads. Abd is soft X 4 quads. Derm: Skin is dry, Skin is normal, Skin temperature is warm. Musculoskeletal: Circulation, motion, and sensation intact. 22:30 Reassessment: CT notified pt completed oral contrast. bb 23:17 Reassessment: Patient is alert, oriented x 3, equal unlabored respirations, skin bb warm/dry/pink. US at bedside. 10/02 00:05 Reassessment: Patient reports slight feeling of nausea returning. lp1 01:28 Reassessment: Dr. Smith at bedside to discuss results with patient and family at lp1 bedside. Vital Signs: 10/01 21:38 BP 146 / 92; Pulse 122; Resp 20; Temp 98.9(TE); Pulse Ox 100% on R/A; Weight 92.99 kg; ab2 Height 6 ft. 3 in. (190.50 cm); Pain 10/10; 22:19 BP 149 / 105; Pulse 92; Resp 18 S; Pulse Ox 98% on R/A; bb 23:11 BP 158 / 113; Pulse 81; Resp 16 S; Pulse Ox 99% on R/A; bb 10/02 00:45 BP 157 / 105; Pulse 86; Resp 18; Pulse Ox 95% on R/A; lp1 01:30 BP 129 / 93; Pulse 84; Resp 18; Pulse Ox 98% on R/A; Pain 7/10; lp1 10/01 21:38 Body Mass Index 25.62 (92.99 kg, 190.50 cm) ab2 ED Course: 10/01 21:34 Patient arrived in ED. bp1 21:38 Lex Smith MD is Attending Physician. rn 21:41 Triage completed. ab2 21:42 Arm band placed on right wrist. ab2 21:50 Patient has correct armband on for positive identification. Placed in gown. Bed in low bb position. Call light in reach. Side rails up X 1. Adult w/ patient. Pulse ox on. NIBP on. Warm blanket given. 22:00 Initial lab(s) drawn, by me, sent to lab. Inserted saline lock: 20 gauge in right bb wrist, using aseptic technique. Blood collected. 22:00 COVID swab sent to lab. bb 23:17 Piedad Cooper RN is Primary Nurse. bb 23:30 US Abdomen Limited In Process Unspecified. EDMS 10/02 00:40 CT Abd/Pelvis - PO and IV Contrast In Process Unspecified. EDMS 01:29 No provider procedures requiring assistance completed. lp1 01:48 IV discontinued, No redness/swelling at site. Pressure dressing applied. lp1 Administered Medications: 10/01 22:00 Drug: NS 0.9% 1000 ml Route: IV; Rate: 1000 ml; Site: right wrist; bb 10/02 00:05 Follow up: IV Status: Completed infusion; IV Intake: 1000ml lp1 10/01 22:01 Drug: Pepcid (famotidine) 20 mg Route: IVP; Site: right wrist; bb 10/02 00:05 Follow up: Response: No adverse reaction lp1 10/01 22:03 Drug: Zofran (Ondansetron) 4 mg Route: IVP; Site: right wrist; bb 23:15 Follow up: Response: Nausea is decreased lp1 10/02 01:27 Drug: Zofran (Ondansetron) 4 mg Route: IVP; Site: right hand; lp1 01:48 Follow up: Response: No adverse reaction lp1 01:40 Drug: HYDROcodone-acetaminophen 5 mg-325 mg 1 tabs Route: PO; lp1 01:48 Follow up: Response: Medication administered at discharge. lp1 Intake: 00:05 IV: 1000ml; Total: 1000ml. lp1 Outcome: 01:34 Discharge ordered by . rn 01:48 Discharged to home ambulatory, with family. lp1 01:48 Condition: good 01:48 Discharge instructions given to patient, Instructed on discharge instructions, follow up and referral plans. medication usage, Demonstrated understanding of instructions, follow-up care, medications, Prescriptions given X 2. 01:49 Patient left the ED. lp1 Signatures: Dispatcher [employer] EDMS Piedad Cooper, RN RN Lex Rico MD MD rn Pena, Laura, RN RN lp1 Catie Daly Alexis ab2
--- NOTE | 2021-10-02 01:34 | EDPHYS ---
Physician Documentation [facility] Name: Louis Hutchinson Age: 61 yrs Sex: Male : 1960 Arrival Date: 10/01/2021 Time: 21:34 Bed 13 Private MD: ED Physician Lex Smith HPI: 10/01 22:22 This 61 yrs old Black Male presents to ER via Ambulatory with complaints of Abdominal rn Pain, vomiting, Back Pain. 22:23 The patient presents with abdominal pain in the upper abdomen. Onset: The rn symptoms/episode began/occurred 1 week(s) ago. The symptoms radiate to back. Associated signs and symptoms: Pertinent positives: nausea and vomiting, constipation, Pertinent negatives: diarrhea, dysuria, fever, hematuria, shortness of breath, testicular pain, vomiting blood. The symptoms are described as achy, crampy. Modifying factors: The symptoms are alleviated by nothing, the symptoms are aggravated by nothing. Severity of pain: At its worst the pain was moderate in the emergency department the pain is unchanged. The patient has experienced a previous episode. The patient has been recently seen by a physician:. Pt states upper abd pain, radiates to back, assoc with nausea/vomiting and constipation. NO fever. NO trauma. Seen at [facility] for this when it started, ct abdomen negative and told had GERD, sent home with reglan. Not better so came in for eval.. Historical: - Allergies: 21:41 No Known Allergies; ab2 - PMHx: 21:41 Diabetes - NIDDM; Hyperlipidemia; Hypertension; ab2 - Immunization history:: Adult Immunizations up to date. - Social history:: Smoking status: Patient denies any tobacco usage or history of. - Family history:: not pertinent. - Hospitalizations: : No recent hospitalization is reported. ROS: 22:23 Constitutional: Negative for fever, chills, and weight loss, Eyes: Negative for injury, rn pain, redness, and discharge, Neck: Negative for injury, pain, and swelling, Cardiovascular: Negative for chest pain, palpitations, and edema, Respiratory: Negative for shortness of breath, cough, wheezing, and pleuritic chest pain, Abdomen/GI: + abd pain and nausea/vomiting/constipation Back: Negative for injury : Negative for injury, bleeding, discharge, and swelling, MS/Extremity: Negative for injury and deformity, Skin: Negative for injury, rash, and discoloration, Neuro: Negative for headache, weakness, numbness, tingling, and seizure. Exam: 22:23 Constitutional: This is a well developed, well nourished patient who is awake, alert, rn pacing in room, spitting up clear stuff into emesis bag Head/Face: Normocephalic, atraumatic. Eyes: Periorbital areas with no swelling, redness, or edema. ENT: dry MM Cardiovascular: Regular rate and rhythm. No pulse deficits. Respiratory: No increased work of breathing, no retractions or nasal flaring. Abdomen/GI: soft, mild epigastric tenderness, no rebound or masses Back: No spinal tenderness. No costovertebral tenderness. Full range of motion. Skin: Warm, dry MS/ Extremity: Pulses equal, no cyanosis. Neuro: Awake and alert, GCS 15. Normal gait. Vital Signs: 21:38 BP 146 / 92; Pulse 122; Resp 20; Temp 98.9(TE); Pulse Ox 100% on R/A; Weight 92.99 kg; ab2 Height 6 ft. 3 in. (190.50 cm); Pain 10/10; 22:19 BP 149 / 105; Pulse 92; Resp 18 S; Pulse Ox 98% on R/A; bb 23:11 BP 158 / 113; Pulse 81; Resp 16 S; Pulse Ox 99% on R/A; bb 10/02 00:45 BP 157 / 105; Pulse 86; Resp 18; Pulse Ox 95% on R/A; lp1 01:30 BP 129 / 93; Pulse 84; Resp 18; Pulse Ox 98% on R/A; Pain 7/10; lp1 10/01 21:38 Body Mass Index 25.62 (92.99 kg, 190.50 cm) ab2 MDM: 10/01 21:38 Patient medically screened. rn 23:36 ED course: U/S gallbladder neg for acute findings per u/s tech.. rn 10/02 01:31 Differential diagnosis: bowel obstruction, cholecystitis, Cholelithiasis, rn diverticulitis, gastritis, non-specific abd pain, pancreatitis, Peptic Ulcer Disease, Perf. Duodenal Ulcer, Perf. Gastric Ulcer, Ureterolithiasis, urinary tract infection. Data reviewed: vital signs, nurses notes, lab test result(s), radiologic studies, CT scan, ultrasound, and as a result, I will discharge patient. Counseling: I had a detailed discussion with the patient and/or guardian regarding: the historical points, exam findings, and any diagnostic results supporting the discharge/admit diagnosis, lab results, radiology results, the need for outpatient follow up, to return to the emergency department if symptoms worsen or persist or if there are any questions or concerns that arise at home. Response to treatment: the patient's symptoms have markedly improved after treatment, and as a result, I will discharge patient. Special discussion: I discussed with the patient/guardian in detail that at this point there is no indication for admission to the hospital. It is understood, however, that if the symptoms persist or worsen the patient needs to return immediately for re-evaluation. Based on the history and exam findings, there is no indication for further emergent testing or inpatient evaluation. I discussed with the patient/guardian the need to see the billing machine operator for further evaluation of the symptoms. ED course: Pt improved, ct no acute findings, afebrile, UA clear, flu and covid neg. This is now 2nd ER w/u that was grossly negative, will dc home with return precautions and prn zofran. Pt states was able to use the bathroom after drinking contrast for CT and feels better.. 10/01 21:53 Order name: CBC with Diff; Complete Time: 23:02 rn 10/01 21:53 Order name: CMP; Complete Time: 23:02 rn 10/01 21:53 Order name: Lipase; Complete Time: 23:02 rn 10/01 21:53 Order name: Urine Microscopic Only; Complete Time: 01:18 rn 10/01 21:53 Order name: COVID-19/FLU A+B (Document "Date of Onset" if Symptomatic); Complete Time: rn 23:34 10/02 00:32 Order name: Urine Dipstick-Ancillary; Complete Time: 00:42 EDMS 10/01 21:53 Order name: IV Saline Lock; Complete Time: 22:17 rn 10/01 21:53 Order name: CT Abd/Pelvis - PO and IV Contrast rn 10/01 23:03 Order name: US Abdomen Limited rn 10/01 21:53 Order name: Labs collected and sent; Complete Time: 22:17 rn 10/01 21:53 Order name: Urine Dipstick-Ancillary (obtain specimen); Complete Time: 00:33 rn Administered Medications: 10/01 22:00 Drug: NS 0.9% 1000 ml Route: IV; Rate: 1000 ml; Site: right wrist; bb 10/02 00:05 Follow up: IV Status: Completed infusion; IV Intake: 1000ml 1 10/01 22:01 Drug: Pepcid (famotidine) 20 mg Route: IVP; Site: right wrist; bb 10/02 00:05 Follow up: Response: No adverse reaction lp1 10/01 22:03 Drug: Zofran (Ondansetron) 4 mg Route: IVP; Site: right wrist; bb 23:15 Follow up: Response: Nausea is decreased lp1 10/02 01:27 Drug: Zofran (Ondansetron) 4 mg Route: IVP; Site: right hand; lp1 01:48 Follow up: Response: No adverse reaction lp1 01:40 Drug: HYDROcodone-acetaminophen 5 mg-325 mg 1 tabs Route: PO; lp1 01:48 Follow up: Response: Medication administered at discharge. lp1 Disposition Summary: 10/02/21 01:34 Discharge Ordered Location: Home rn Problem: an ongoing problem rn Symptoms: have improved rn Condition: Stable rn Diagnosis - Abdominal pain, unspecified rn - Constipation, unspecified rn Followup: rn - With: Private Physician - When: As needed - Reason: Recheck today's complaints, Re-evaluation by your physician Discharge Instructions: - Discharge Summary Sheet rn - Abdominal Pain, Adult rn - Constipation, Adult rn - Nausea and Vomiting, Adult rn - Pain Without a Known Cause rn Forms: - Medication Reconciliation Form rn - Thank You Letter rn - Antibiotic government operations consultant - Prescription Opioid Use rn Prescriptions: - ondansetron 4 mg Oral tablet,disintegrating - take 1 tablet by ORAL route every 8 hours As needed; 15 tablet; Refills: 0, rn Product Selection Permitted - Tramadol 50 mg Oral Tablet - take 1 tablet by ORAL route every 8 hours as needed; 12 tablet; Refills: 0, rn Product Selection Permitted Signatures: Dispatcher [facility] EDPiedad Mcconnell RN RN bb Lex Smith MD MD rn Pena, Laura, RN RN lp1 Pedro Kahn2 Corrections: (The following items were deleted from the chart) 10/01 22:24 22:23 Constitutional: Negative for fever, chills, and weight loss, Eyes: Negative for rn injury, pain, redness, and discharge, Neck: Negative for injury, pain, and swelling, Cardiovascular: Negative for chest pain, palpitations, and edema, Respiratory: Negative for shortness of breath, cough, wheezing, and pleuritic chest pain, Abdomen/GI: + abd pain and nausea/vomiting/constipation Back: Negative for injury MS/Extremity: Negative for injury and deformity, Skin: Negative for injury, rash, and discoloration, Neuro: Negative for headache, weakness, numbness, tingling, and seizure, rn
[2021-10-02] MEDS ORDERED: HYDROCODONE/APAP 5/325 MG TAB ONE (01:45)
[2021-10-02 05:20] VITALS: TEMP 98.9
[2021-10-02 05:26] VITALS: BP 129/93; O2SAT 98
--- NOTE | 2021-10-02 11:07 | RAD REPORT ---
EXAM DESCRIPTION: CT Abdomen and Pelvis With Intravenous Contrast CLINICAL HISTORY: The patient is 61 years old and is Male; Abdominal pain, acute, nonlocalized TECHNIQUE: Axial computed tomography images of the abdomen and pelvis with intravenous contrast. S agittal and coronal reformatted images were created and reviewed. This CT exam was performed using one or more of the following dose reduction techniques: automated exposure control, adjustment of t he mA and/or kV according to patient size, and/or use of iterative reconstruction technique. COMPARISON: CT abdomen and pelvis with contrast September 26, 2021. FINDINGS: Lung bases: Unremarkable. No mass. No consolidation. ABDOMEN: Liver: Unremarkable. No mass. Gallbladder and bile ducts: Unremarkable. No calcified stones. No ductal dilation. Pancreas: Unremarkable. No mass. No ductal dilation. Spleen: Unremarkable. No splenomegaly. Adrenals: Unremarkable. No mass. Kidneys and ureters: Simple cyst in left kidney. ACR White Paper guidelines (Hertim, et al. JACR 2018; 15(2):264-273) suggest no follow-up is necessary. No hydronephrosis. Stomach and bowel: Unremarkable. No obstruction. No mucosal thickening. PELVIS: Appendix: No findings to suggest acute appendicitis. Bladder: Unremarkable. No mass. Reproductive: Unremarkable as visualized. ABDOMEN and PELVIS: Intraperitoneal space: Unremarkable. No free air. No significant fluid collection. Bones/joints: Disc bulges in the lumbar spine from L3-4 through L5-S1. No acute fracture. No dislocation. Soft tissues: Fat-containing left inguinal hernia. Vasculature: Calcified and noncalcified plaque in the aorta. No abdominal aortic aneurysm. Lymph nodes: Unremarkable. No enlarged lymph nodes. IMPRESSION: No acute findings in the abdomen or pelvis. Electronically signed by: Tae Diaz MD 10/02/2021 1:02 AM CDT Due to temporary technical issues with the PACS/Fluency reporting system, reports are being signed by the in house radiologist without review as a courtesy to ensure prompt reporting. The interpreting r adiologist is fully responsible for the content of the report.
--- NOTE | 2021-10-02 11:09 | RAD REPORT ---
EXAM DESCRIPTION: Abdomen Exam Limited RadLex: US ABDOMEN LIMITED CLINICAL HISTORY: Vomiting, eval gallbladder. COMPARISON: None. TECHNIQUE: Ultrasound of the gallbladder with Doppler flow imaging was obtained. FINDINGS: Liver: Increased parenchymal echogenicity. Typical sparing adjacent to the gallbladder. Gallbladder: No cholelithiasis or gallbladder wall thickening. No focal tenderness over the gallbladd er. Bile ducts: The common bile duct measures 0.3 cm in diameter at the riley hepatis. IMPRESSION: 1. No cholelithiasis is identified. 2. No biliary ductal dilatation. 3. Hepatic steatosis. Electronically signed by: Kassidy Landry MD 10/01/2021 11:46 PM CDT Due to temporary technical issues with the PACS/Fluency reporting system, reports are being signed by the in house radiologist without review as a courtesy to ensure prompt reporting. The interpreting r adiologist is fully responsible for the content of the report.
== END 2021-10-02 01:49 | disposition home or self-care (01) ==
LOC: ER 21:29
DX: R10.9 Unspecified abdominal pain (principal); K59.09 Other constipation; E11.9 Type 2 diabetes mellitus without complications; E78.5 Hyperlipidemia, unspecified; I10 Essential (primary) hypertension; Z20.822 Contact with and (suspected) exposure to COVID-19
CPT/HCPCS: 85025; 36415; 83690; 80053; 0240U; 74177; 76705; 99284; Q9967; J7030; J2405 ×2; J3490; 81003; 81015